=== PATIENT | male | born 1975 | race Hispanic/Latino ===

== ENCOUNTER 2020-06-17 11:13 | Emergency (ER) | payer BC, OTHER ==
[~2020-06-17] VITALS: Ht 167.6 cm; Wt 81.6 kg
[2020-06-17] MEDS ORDERED: TETANUS/DIPHTHERIA TOX ADULT 0.5 ML SYR IM ONE (11:30)
[2020-06-17 13:41] VITALS: BP 142/75
== END 2020-06-17 13:44 | disposition home or self-care (01) ==
LOC: ER 11:25
DX: S91.331A Puncture wound without foreign body, right foot, initial encounter (principal); W26.8XXA Contact with other sharp object(s), not elsewhere classified, initial encounter; Y93.01 Activity, walking, marching and hiking; Y99.0 Civilian activity done for income or pay; I10 Essential (primary) hypertension; E11.9 Type 2 diabetes mellitus without complications; F17.210 Nicotine dependence, cigarettes, uncomplicated
CPT/HCPCS: 90471; 90714; 99283